=== PATIENT | male | born 1990 | race Two or more races ===

== ENCOUNTER 2020-03-08 14:01 | Inpatient (IN) | payer SELFPAY ==
[~2020-03-08] VITALS: Ht 170.2 cm; Wt 71.8 kg
[2020-03-08 14:42] LABS: BASO # 0.2 x10^3/uL (0.0-0.2); BASO % 1 % (0-3); EOS % 0 % (0-3); HEMATOCRIT 58.6 % (39.0-53.0); HEMOGLOBIN 20.2 g/dL (13.0-17.5); LYMPH % 8 % (24-48); MEAN CORPUSCULAR HEMOGLOBIN 32 pg (25-35); MEAN CORPUSCULAR HGB CONC 35 g/dL (31-37); MEAN CORPUSCULAR VOLUME 91 fL (79-100); MONO # 1.3 x10^3/uL (0.0-1.1); MONO % 5 % (0-9); NEUT # 22.4 x10^3/uL (1.8-7.7); NEUT % 87 % (31-73); PLATELET COUNT 365 x10^3/uL (140-400); RED BLOOD COUNT 6.41 x10^6/uL (4.30-5.70); RED CELL DISTRIBUTION WIDTH 13.8 % (11.5-14.5); WHITE BLOOD COUNT 25.9 x10^3/uL (4.0-11.0)
[2020-03-08] MEDS ORDERED: IV NORMAL SALINE 1000ML BAG 1,000 ML IV ONE ×3 (14:45→15:30)
[2020-03-08 14:50] LABS: CALCIUM 11.9 mg/dL (8.5-10.1); GFR 9.3; POTASSIUM 3.9 mmol/L (3.5-5.1)
--- NOTE | 2020-03-08 14:55 | PHYS DOC ---
Past Medical History Past Medical History: No Pertinent History Additional Past Medical Histor: per language line, "I don't know" Past Surgical History: No Surgical History Smoking Status: Never Smoker Alcohol Use: None General Adult EDM: Chief Complaint: MUSCLE SPASM/CRAMP HPI: HPI: Patient is a 29 year old male who presented to ER today by private vehicle complaining of nausea vomiting and muscle cramping since last night. Patient said he was working outside under the heat yesterday became severely dehydrated last night. He has been feeling weak, dizzy, having cramping in his muscle in his leg and had back area. Patient denies any cough or fever. Patient also complained of cramping in his abdomen area, he had more cramping in his legs and his back then in his belly. Review of Systems: Review of Systems: Constitutional: Denies fever or chills. [] Eyes: Denies change in visual acuity. [] HENT: Denies nasal congestion or sore throat. [] Respiratory: Denies cough or shortness of breath. [] Cardiovascular: Denies chest pain or edema. [] GI: Positive for abdominal cramping, nausea, vomiting, no diarrhea : Denies dysuria. [] Musculoskeletal: Positive for back pain, leg pain, cramping. Integument: Denies rash. [] Neurologic: Denies headache, focal weakness or sensory changes. [] Endocrine: Denies polyuria or polydipsia. [] Lymphatic: Denies swollen glands. [] Psychiatric: Denies depression or anxiety. [] Heart Score: Risk Factors: Risk Factors: DM, Current or recent (<one month) smoker, HTN, HLP, family history of CAD, obesity. Risk Scores: Score 0 - 3: 2.5% MACE over next 6 weeks - Discharge Home Score 4 - 6: 20.3% MACE over next 6 weeks - Admit for Clinical Observation Score 7 - 10: 72.7% MACE over next 6 weeks - Early Invasive Strategies Current Medications: Current Medications Medications (Trade) Dose Ordered Sig/Gilbert Start Time Stop Time Status Last Admin Dose Admin Sodium Chloride 1,000 ml @ 1,000 mls/hr 1X ONCE 03/08/20 14:45 03/08/20 15:44 03/08/20 14:45 1,000 MLS/HR Allergies: Allergies: Allergies Coded Allergies Type Severity Reaction Last Updated Verified No Known Drug Allergies 03/08/20 No Physical Exam: PE: Constitutional: Well developed, well nourished, no acute distress, non-toxic appearance. [] HENT: Normocephalic, atraumatic, bilateral external ears normal, oropharynx dry, no oral exudates, nose normal. [] Eyes: PERRLA, EOMI, conjunctiva normal, no discharge. [] Neck: Normal range of motion, no tenderness, supple, no stridor. [] Cardiovascular:Heart rate regular rhythm, no murmur [] Lungs & Thorax: Bilateral breath sounds clear to auscultation [] Abdomen: Bowel sounds normal, soft, no tenderness, no masses, no pulsatile mass es. [] Skin: Warm, dry, no erythema, no rash. [] Back: No tenderness, no CVA tenderness. [] Extremities: There is tenderness to palpation all along the muscle of the calf and the thigh areas Neurologic: Alert and oriented X 3, normal motor function, normal sensory function, no focal deficits noted. [] Psychologic: Affect normal, judgement normal, mood normal. [] Current Patient Data: Labs: Laboratory Tests Test 03/08/20 14:15 White Blood Count 25.9 x10^3/uL (4.0-11.0) H Red Blood Count 6.41 x10^6/uL (4.30-5.70) H Hemoglobin 20.2 g/dL (13.0-17.5) H Hematocrit 58.6 % (39.0-53.0) H Mean Corpuscular Volume 91 fL (79-100) Mean Corpuscular Hemoglobin 32 pg (25-35) Mean Corpuscular Hemoglobin Concent 35 g/dL (31-37) Red Cell Distribution Width 13.8 % (11.5-14.5) Platelet Count 365 x10^3/uL (140-400) Neutrophils (%) (Auto) 87 % (31-73) H Lymphocytes (%) (Auto) 8 % (24-48) L Monocytes (%) (Auto) 5 % (0-9) Eosinophils (%) (Auto) 0 % (0-3) Basophils (%) (Auto) 1 % (0-3) Neutrophils # (Auto) 22.4 x10^3/uL (1.8-7.7) H Lymphocytes # (Auto) 2.0 x10^3/uL (1.0-4.8) Monocytes # (Auto) 1.3 x10^3/uL (0.0-1.1) H Eosinophils # (Auto) 0.0 x10^3/uL (0.0-0.7) Basophils # (Auto) 0.2 x10^3/uL (0.0-0.2) Platelet Estimate Pending Laboratory Tests 03/08/20 14:15 Vital Signs: Vital Signs Date Time Temp Pulse Resp B/P (MAP) Pulse Ox O2 Delivery O2 Flow Rate FiO2 03/08/20 14:14 97.8 104 16 149/102 (118) 97 Room Air 97.8 EKG: EKG: [] Radiology/Procedures: Radiology/Procedures: [] Course & Med Decision Making: Course & Med Decision Making Pertinent Labs and Imaging studies reviewed. (See chart for details) Patient is a 29-year-old male who was found to be in acute renal failure, acute rhabdomyolysis from heat exhaustion. Patient was given IV fluid in the ER, he will be admitted to hospital for further evaluation and treatment. Dr. Lackey, hospitalist, was called, who agreed to admit the patient. Nephrology service was consulted, Dr. HANCOCK, was called, agreed with treatment plan, will see patient in am. Mojgan Disclaimer: Mojgan Disclaimer: This electronic medical record was generated, in whole or in part, using a voice recognition dictation system. Departure Departure Impression: Primary Impression: Acute renal failure Additional Impressions: Rhabdomyolysis Dehydration Disposition: ADMITTED INPATIENT [facility]Dr. Lackey at 1520 ) Condition: IMPROVED Justicifation of Admission Dx: Justifications for Admission: Justification of Admission Dx: Yes Acute Renal Failure: Serum Cr > 4mg/dL KALYN LUGO DO Mar 08, 2020 14:55
[2020-03-08 15:04] LABS: ALBUMIN 5.7 g/dL (3.4-5.0); ALBUMIN/GLOBULIN RATIO 1.1 (1.0-1.7); TOTAL BILIRUBIN 0.7 mg/dL (0.2-1.0)
[2020-03-08] MEDS ORDERED: MORPHINE SULFATE 2 MG/ML VIAL. IV ONE (15:30)
[2020-03-08 15:33] LABS: % BANDS 3 % (0-9); % LYMPHS 8 % (24-48); % MONOS 2 % (0-10); % SEGS 87 % (35-66)
[2020-03-08 15:34] LABS: PLT ESTIMATE ADEQUATE (ADEQUATE)
[2020-03-08] MEDS ORDERED: MORPHINE SULFATE 2 MG/ML VIAL. IV PRN (15:45)
[2020-03-08 16:07] LABS: BILIRUBIN,URINE SMALL (NEG); CLARITY,URINE CLOUDY; COLOR,URINE AMBER; NITRITE,URINE NEGATIVE (NEG); PROTEIN,URINE 100 mg/dL (NEG-TRACE); UROBILINOGEN,URINE 0.2 mg/dL (0.2 mg/dL)
[2020-03-08 16:15] LABS: BARBITURATES NEG (NEG); BENZODIAZEPINES NEG (NEG); CANNABINOIDS POS (NEG); COCAINE NEG (NEG); METHADONE NEG (NEG); OPIATES NEG (NEG); PHENCYCLIDINE NEG (NEG)
[2020-03-08 16:16] LABS: AMPHETAMINE/METHAMPHETAMINE POS (NEG)
[2020-03-08 16:28] LABS: BACTERIA,URINE FEW /HPF (0-FEW); HYALINE CASTS, URINE MODERATE /HPF; SQUAMOUS EPITHELIAL CELL,UR FEW /LPF
[2020-03-08 16:29] LABS: GRANULAR CASTS,URINE FEW /HPF
--- NOTE | 2020-03-08 17:30 | PDOC1 ---
History and Physical Date of Admission: Date of Admission DATE: 03/08/20 TIME: 17:29 Chief Complaint: Problems: (1) Dehydration (2) Acute renal failure (3) Rhabdomyolysis Chief Complain: Muscle spasms History of Present Illness: HPI: Patient is a 29 year old male who presented to ER today by private vehicle complaining of nausea vomiting and muscle cramping since last night. Patient said he was working outside under the heat yesterday became severely dehydrated last night. He has been feeling weak, dizzy, having cramping in his muscle in his leg and had back area. Patient denies any cough or fever. Patient also complained of cramping in his abdomen area, he had more cramping in his legs and his back then in his belly. Past Medical/Surgical History: PMH/PSH: Benign Allergies: Allergies: Coded Allergies: No Known Drug Allergies (Unverified , 03/08/20) Family History: Family History: Hypertension Social History: Social History: Does not drink smoke or take drugs Works outdoors Current Medications: Current Medications Current Medications Sodium Chloride 1,000 ml @ 1,000 mls/hr 1X ONCE IV Last administered on 03/08/20at 14:44; Start 03/08/20 at 14:45; Stop 03/08/20 at 15:44; Status DC Sodium Chloride 1,000 ml @ 1,000 mls/hr 1X ONCE IV Last administered on 03/08/20at 14:45; Start 03/08/20 at 14:45; Stop 03/08/20 at 15:44; Status DC Sodium Chloride 1,000 ml @ 1,000 mls/hr 1X ONCE IV Last administered on 03/08/20at 16:10; Start 03/08/20 at 15:30; Stop 03/08/20 at 16:29; Status DC Morphine Sulfate (Morphine Sulfate) 2 mg 1X ONCE IV Last administered on 0at 16:09; Start 03/08/20 at 15:30; Stop 03/08/20 at 15:31; Status DC Ondansetron HCl (Zofran) 4 mg PRN Q8HRS PRN IV NAUSEA/VOMITING; Start 03/08/20 at 15:45; Stop 03/09/20 at 15:44 Morphine Sulfate (Morphine Sulfate) 2 mg PRN Q2HR PRN IV PAIN; Start 03/08/20 at 15:45; Stop 03/09/20 at 15:44 Sodium Chloride 1,000 ml @ 125 mls/hr Q8H IV ; Start 03/08/20 at 15:38; Stop 03/09/20 at 15:37 ROS: Review of Systems Review of System REVIEW OF SYSTEMS: GENERAL: Denies weakness SKIN: No bruising, hair changes or rashes. EYES: No blurred, double or loss of vision. NOSE AND THROAT: No history of nosebleeds, hoarseness or sore throat. HEART: No history of palpitations, chest pain or shortness of breath on exertion. LUNGS: Denies cough, hemoptysis, wheezing or shortness of breath. GASTROINTESTINAL: Denies changes in appetite, nausea, vomiting, diarrhea or constipation. GENITOURINARY: No history of frequency, urgency, hesitancy or nocturia. NEUROLOGIC: Denies history of numbness, tingling, or tremor. PSYCHIATRIC: No history of panic, anxiety or depression. ENDOCRINE: No history of heat or cold intolerance, polyuria or polydipsia. EXTREMITIES: Denies joint pain, pain on walking or stiffness. Physical Exam: Vital Signs: Vital Signs Date Time Temp Pulse Resp B/P (MAP) Pulse Ox O2 Delivery O2 Flow Rate FiO2 03/08/20 14:14 97.8 104 16 149/102 (118) 97 Room Air 97.8 Physcial Exam: GEN: No apparent distress. Alert and oriented HEENT: Normal cephalic, atraumatic, external auditory canals are patent EYES: Extraocular muscles are intact, pupil are equally round and reactive to light and accommodation MUSCULOSKELETAL: Well developed , well nourished, good range of motion ENDOCRINE: No thyromegaly was palpated LYMPHATICS: No cervical chain or axillary nodes were noted HEMATOPOIETIC: No bruising NECK: Supple, no JVD, no thyromegaly was noted LUNGS: Clear to auscultation in all lung thomason without rhonchi or wheezing HEART: RRR, S!, S2 present. Peripheral pulses intact, no obvious murmurs noted ABDOMEN: Soft, nontender. Positive bowel sounds, no organomegaly, normal bowel sounds EXTREMITIES: Without clubbing, cyanosis, or edema. Pedal pulses intact. Neg ative Homans sign NEUROLOGIC: Normal speech and tone. A&O x 3, moves all extremities, no obvious focal deficits PSYCHIATRIC: Normal affect, normal mood. Stable SKIN: No ulcerations or rashes, good skin turgor, no jaundice VASCULAR: Good capillary refill, neurovascular bundle appears to be intact Labs: Labs: Laboratory Tests Test 03/08/20 14:05 03/08/20 14:15 Urine Collection Type Unknown Urine Color Mariely Urine Clarity Cloudy Urine pH 5.0 (<5.0-8.0) Urine Specific Hosford 1.020 (1.000-1.030) Urine Protein 100 mg/dL (NEG-TRACE) Urine Glucose (UA) Negative mg/dL (NEG) Urine Ketones (Stick) Trace mg/dL (NEG) Urine Blood Trace (NEG) Urine Nitrite Negative (NEG) Urine Bilirubin Small (NEG) Urine Urobilinogen Dipstick 0.2 mg/dL (0.2 mg/dL) Urine Leukocyte Esterase Trace (NEG) Urine RBC 3-5 /HPF (0-2) Urine WBC 1-4 /HPF (0-4) Urine Squamous Epithelial Cells Few /LPF Urine Bacteria Few /HPF (0-FEW) Urine Hyaline Casts Moderate /HPF Urine Granular Casts Few /HPF Urine Mucus Slight /LPF Urine Opiates Screen Neg (NEG) Urine Methadone Screen Neg (NEG) Urine Barbiturates Neg (NEG) Urine Phencyclidine Screen Neg (NEG) Urine Amphetamine/Methamphetamine Pos (NEG) Urine Benzodiazepines Screen Neg (NEG) Urine Cocaine Screen Neg (NEG) Urine Cannabinoids Screen Pos (NEG) Urine Ethyl Alcohol Neg (NEG) White Blood Count 25.9 x10^3/uL (4.0-11.0) Red Blood Count 6.41 x10^6/uL (4.30-5.70) Hemoglobin 20.2 g/dL (13.0-17.5) Hematocrit 58.6 % (39.0-53.0) Mean Corpuscular Volume 91 fL (79-100) Mean Corpuscular Hemoglobin 32 pg (25-35) Mean Corpuscular Hemoglobin Concent 35 g/dL (31-37) Red Cell Distribution Width 13.8 % (11.5-14.5) Platelet Count 365 x10^3/uL (140-400) Neutrophils (%) (Auto) 87 % (31-73) Lymphocytes (%) (Auto) 8 % (24-48) Monocytes (%) (Auto) 5 % (0-9) Eosinophils (%) (Auto) 0 % (0-3) Basophils (%) (Auto) 1 % (0-3) Neutrophils # (Auto) 22.4 x10^3/uL (1.8-7.7) Lymphocytes # (Auto) 2.0 x10^3/uL (1.0-4.8) Monocytes # (Auto) 1.3 x10^3/uL (0.0-1.1) Eosinophils # (Auto) 0.0 x10^3/uL (0.0-0.7) Basophils # (Auto) 0.2 x10^3/uL (0.0-0.2) Segmented Neutrophils % 87 % (35-66) Band Neutrophils % 3 % (0-9) Lymphocytes % 8 % (24-48) Monocytes % 2 % (0-10) Platelet Estimate Adequate (ADEQUATE) Sodium Level 137 mmol/L (136-145) Potassium Level 3.9 mmol/L (3.5-5.1) Chloride Level 85 mmol/L (98-107) Carbon Dioxide Level 28 mmol/L (21-32) Anion Gap 24 (6-14) Blood Urea Nitrogen 44 mg/dL (8-26) Creatinine 7.0 mg/dL (0.7-1.3) Estimated GFR (Cockcroft-Gault) 9.3 BUN/Creatinine Ratio 6 (6-20) Glucose Level 214 mg/dL (70-99) Calcium Level 11.9 mg/dL (8.5-10.1) Magnesium Level 2.9 mg/dL (1.8-2.4) Total Bilirubin 0.7 mg/dL (0.2-1.0) Aspartate Amino Transf (AST/SGOT) 50 U/L (15-37) Alanine Aminotransferase (ALT/SGPT) 40 U/L (16-63) Alkaline Phosphatase 118 U/L (46-116) Creatine Kinase 3140 U/L (39-308) Total Protein 11.0 g/dL (6.4-8.2) Albumin 5.7 g/dL (3.4-5.0) Albumin/Globulin Ratio 1.1 (1.0-1.7) Laboratory Tests Test 03/08/20 14:05 03/08/20 14:15 Urine Collection Type Unknown Urine Color Mariely Urine Clarity Cloudy Urine pH 5.0 (<5.0-8.0) Urine Specific Hos[place] 1.020 (1.000-1.030) Urine Protein 100 mg/dL (NEG-TRACE) Urine Glucose (UA) Negative mg/dL (NEG) Urine Ketones (Stick) Trace mg/dL (NEG) Urine Blood Trace (NEG) Urine Nitrite Negative (NEG) Urine Bilirubin Small (NEG) Urine Urobilinogen Dipstick 0.2 mg/dL (0.2 mg/dL) Urine Leukocyte Esterase Trace (NEG) Urine RBC 3-5 /HPF (0-2) Urine WBC 1-4 /HPF (0-4) Urine Squamous Epithelial Cells Few /LPF Urine Bacteria Few /HPF (0-FEW) Urine Hyaline Casts Moderate /HPF Urine Granular Casts Few /HPF Urine Mucus Slight /LPF Urine Opiates Screen Neg (NEG) Urine Methadone Screen Neg (NEG) Urine Barbiturates Neg (NEG) Urine Phencyclidine Screen Neg (NEG) Urine Amphetamine/Methamphetamine Pos (NEG) Urine Benzodiazepines Screen Neg (NEG) Urine Cocaine Screen Neg (NEG) Urine Cannabinoids Screen Pos (NEG) Urine Ethyl Alcohol Neg (NEG) White Blood Count 25.9 x10^3/uL (4.0-11.0) Red Blood Count 6.41 x10^6/uL (4.30-5.70) Hemoglobin 20.2 g/dL (13.0-17.5) Hematocrit 58.6 % (39.0-53.0) Mean Corpuscular Volume 91 fL (79-100) Mean Corpuscular Hemoglobin 32 pg (25-35) Mean Corpuscular Hemoglobin Concent 35 g/dL (31-37) Red Cell Distribution Width 13.8 % (11.5-14.5) Platelet Count 365 x10^3/uL (140-400) Neutrophils (%) (Auto) 87 % (31-73) Lymphocytes (%) (Auto) 8 % (24-48) Monocytes (%) (Auto) 5 % (0-9) Eosinophils (%) (Auto) 0 % (0-3) Basophils (%) (Auto) 1 % (0-3) Neutrophils # (Auto) 22.4 x10^3/uL (1.8-7.7) Lymphocytes # (Auto) 2.0 x10^3/uL (1.0-4.8) Monocytes # (Auto) 1.3 x10^3/uL (0.0-1.1) Eosinophils # (Auto) 0.0 x10^3/uL (0.0-0.7) Basophils # (Auto) 0.2 x10^3/uL (0.0-0.2) Segmented Neutrophils % 87 % (35-66) Band Neutrophils % 3 % (0-9) Lymphocytes % 8 % (24-48) Monocytes % 2 % (0-10) Platelet Estimate Adequate (ADEQUATE) Sodium Level 137 mmol/L (136-145) Potassium Level 3.9 mmol/L (3.5-5.1) Chloride Level 85 mmol/L (98-107) Carbon Dioxide Level 28 mmol/L (21-32) Anion Gap 24 (6-14) Blood Urea Nitrogen 44 mg/dL (8-26) Creatinine 7.0 mg/dL (0.7-1.3) Estimated GFR (Cockcroft-Gault) 9.3 BUN/Creatinine Ratio 6 (6-20) Glucose Level 214 mg/dL (70-99) Calcium Level 11.9 mg/dL (8.5-10.1) Magnesium Level 2.9 mg/dL (1.8-2.4) Total Bilirubin 0.7 mg/dL (0.2-1.0) Aspartate Amino Transf (AST/SGOT) 50 U/L (15-37) Alanine Aminotransferase (ALT/SGPT) 40 U/L (16-63) Alkaline Phosphatase 118 U/L (46-116) Creatine Kinase 3140 U/L (39-308) Total Protein 11.0 g/dL (6.4-8.2) Albumin 5.7 g/dL (3.4-5.0) Albumin/Globulin Ratio 1.1 (1.0-1.7) Assessment/Plan Assessment/Plan Severe acute renal failure with dehydration rhabdomyolysis Plan IV fluids Trend labs Consult nephrology Home meds DVT prophylaxis Full code Justicifation of Admission Dx: Justifications for Admission: Justification of Admission Dx: Yes Acute Renal Failure: Serum Cr > 4mg/dL ANTHONY BRADSHAW III DO Mar 08, 2020 17:30
[2020-03-08] MEDS: IV NORMAL SALINE 1000ML BAG 1,000 ML IV SCH (17:49)
[2020-03-08 18:19] VITALS: BP 147/93
[2020-03-08 23:05] VITALS: BP 129/67
[2020-03-09] MEDS: IV NORMAL SALINE 1000ML BAG 1,000 ML IV SCH ×4 (01:00→22:43)
[2020-03-09 03:25] VITALS: BP 121/77
[2020-03-09] MEDS: ONDANSETRON PF 4 MG/2 ML VIAL. IV PRN ×2 (03:53→13:11)
[2020-03-09 05:09] LABS: BASO % 0 % (0-3); EOS % 0 % (0-3); HEMATOCRIT 45.9 % (39.0-53.0); HEMOGLOBIN 15.7 g/dL (13.0-17.5); LYMPH # 2.1 x10^3/uL (1.0-4.8); LYMPH % 13 % (24-48); MEAN CORPUSCULAR HEMOGLOBIN 31 pg (25-35); MEAN CORPUSCULAR HGB CONC 34 g/dL (31-37); MEAN CORPUSCULAR VOLUME 92 fL (79-100); MONO # 1.4 x10^3/uL (0.0-1.1); MONO % 9 % (0-9); NEUT # 12.6 x10^3/uL (1.8-7.7); NEUT % 78 % (31-73); PLATELET COUNT 237 x10^3/uL (140-400); RED CELL DISTRIBUTION WIDTH 13.4 % (11.5-14.5); WHITE BLOOD COUNT 16.1 x10^3/uL (4.0-11.0)
--- NOTE | 2020-03-09 05:19 | EKG ---
[facility] [address] [place] [address] Test Date: 2020-03-09 Test Time: 04:48:43 Pat Name: SARAHI COOPER Department: Room: 208 1 Gender: M Mouse [employer]eder: : 1990 Requested By: ANTHONY BRADSHAW Order Number: [id number] Reading MD: Luis Parker MD Measurements Intervals Shepherd Rate: 69 P: 36 NE: 144 QRS: 41 QRSD: 100 T: 42 QT: 384 QTc: 413 Interpretive Statements SINUS RHYTHM Electronically Signed On 04-21-2020 13:48:11 CDT by Luis Parker MD
[2020-03-09 05:32] LABS: ALBUMIN 3.7 g/dL (3.4-5.0); CALCIUM 8.7 mg/dL (8.5-10.1); CREATININE 2.4 mg/dL (0.7-1.3); GFR 31.9; TOTAL BILIRUBIN 0.8 mg/dL (0.2-1.0); TOTAL PROTEIN 7.3 g/dL (6.4-8.2)
[2020-03-09 07:00] VITALS: BP 132/67
--- NOTE | 2020-03-09 08:25 | PDOC ---
PROGRESS NOTES Chief Complaint Chief Complaint A/P: Acute renal failure - likely vasomotor nephropathy with element of ATN from amphetamine use Leukocytosis - no clear infectious etiology, likely 2/2 rhabo Rhabdomyolysis - IVF resuscitation. Monitor LFTs, renal function Hypercalcemia - likely from dehydration, improved. will monitor Amphetamine positive UDS History of Present Illness History of Present Illness Mr Sam is a 29 yo M who presented to ER today by private vehicle complaining of nausea vomiting and muscle cramping since 03/07/2020 in the [facility]. Patient said he was working outside in the heat, became severely dehydrated. He has been feeling weak, dizzy, having cramping in his muscle in his leg and had back area. Patient denies any cough or fever. Patient also complained of cramping in his abdomen area, he had more cramping in his legs and his back then in his belly. Labs significant for WBC 25.9, [place] [address] creatinine 7, calcium 11.9, UDS positive for methamphetamines and cannabinoids. Admitted for further care WBC 16.1 today, BUN 33 creatinine 2.4. He has no complaints today. CPK up to 3603, AST up to 68. Vitals Vitals Vital Signs Date Time Temp Pulse Resp B/P (MAP) Pulse Ox O2 Delivery O2 Flow Rate FiO2 03/09/20 03:25 98.4 71 18 121/77 (92) 93 Room Air 98.4 Physical Exam General: Alert Labs LABS Laboratory Tests Test 03/08/20 14:05 03/08/20 14:15 03/09/20 04:18 Urine Collection Type Unknown Urine Color Mariely Urine Clarity Cloudy Urine pH 5.0 (<5.0-8.0) Urine Specific Allison 1.020 (1.000-1.030) Urine Protein 100 mg/dL (NEG-TRACE) Urine Glucose (UA) Negative mg/dL (NEG) Urine Ketones (Stick) Trace mg/dL (NEG) Urine Blood Trace (NEG) Urine Nitrite Negative (NEG) Urine Bilirubin Small (NEG) Urine Urobilinogen Dipstick 0.2 mg/dL (0.2 mg/dL) Urine Leukocyte Esterase Trace (NEG) Urine RBC 3-5 /HPF (0-2) Urine WBC 1-4 /HPF (0-4) Urine Squamous Epithelial Cells Few /LPF Urine Bacteria Few /HPF (0-FEW) Urine Hyaline Casts Moderate /HPF Urine Granular Casts Few /HPF Urine Mucus Slight /LPF Urine Opiates Screen Neg (NEG) Urine Methadone Screen Neg (NEG) Urine Barbiturates Neg (NEG) Urine Phencyclidine Screen Neg (NEG) Urine Amphetamine/Methamphetamine Pos (NEG) Urine Benzodiazepines Screen Neg (NEG) Urine Cocaine Screen Neg (NEG) Urine Cannabinoids Screen Pos (NEG) Urine Ethyl Alcohol Neg (NEG) White Blood Count 25.9 x10^3/uL (4.0-11.0) 16.1 x10^3/uL (4.0-11.0) Red Blood Count 6.41 x10^6/uL (4.30-5.70) 5.00 x10^6/uL (4.30-5.70) Hemoglobin 20.2 g/dL (13.0-17.5) 15.7 g/dL (13.0-17.5) Hematocrit 58.6 % (39.0-53.0) 45.9 % (39.0-53.0) Mean Corpuscular Volume 91 fL (79-100) 92 fL (79-100) Mean Corpuscular Hemoglobin 32 pg (25-35) 31 pg (25-35) Mean Corpuscular Hemoglobin Concent 35 g/dL (31-37) 34 g/dL (31-37) Red Cell Distribution Width 13.8 % (11.5-14.5) 13.4 % (11.5-14.5) Platelet Count 365 x10^3/uL (140-400) 237 x10^3/uL (140-400) Neutrophils (%) (Auto) 87 % (31-73) 78 % (31-73) Lymphocytes (%) (Auto) 8 % (24-48) 13 % (24-48) Monocytes (%) (Auto) 5 % (0-9) 9 % (0-9) Eosinophils (%) (Auto) 0 % (0-3) 0 % (0-3) Basophils (%) (Auto) 1 % (0-3) 0 % (0-3) Neutrophils # (Auto) 22.4 x10^3/uL (1.8-7.7) 12.6 x10^3/uL (1.8-7.7) Lymphocytes # (Auto) 2.0 x10^3/uL (1.0-4.8) 2.1 x10^3/uL (1.0-4.8) Monocytes # (Auto) 1.3 x10^3/uL (0.0-1.1) 1.4 x10^3/uL (0.0-1.1) Eosinophils # (Auto) 0.0 x10^3/uL (0.0-0.7) 0.0 x10^3/uL (0.0-0.7) Basophils # (Auto) 0.2 x10^3/uL (0.0-0.2) 0.0 x10^3/uL (0.0-0.2) Segmented Neutrophils % 87 % (35-66) Band Neutrophils % 3 % (0-9) Lymphocytes % 8 % (24-48) Monocytes % 2 % (0-10) Platelet Estimate Adequate (ADEQUATE) Sodium Level 137 mmol/L (136-145) 138 mmol/L (136-145) Potassium Level 3.9 mmol/L (3.5-5.1) 4.0 mmol/L (3.5-5.1) Chloride Level 85 mmol/L (98-107) 99 mmol/L (98-107) Carbon Dioxide Level 28 mmol/L (21-32) 31 mmol/L (21-32) Anion Gap 24 (6-14) 8 (6-14) Blood Urea Nitrogen 44 mg/dL (8-26) 33 mg/dL (8-26) Creatinine 7.0 mg/dL (0.7-1.3) 2.4 mg/dL (0.7-1.3) Estimated GFR (Cockcroft-Gault) 9.3 31.9 BUN/Creatinine Ratio 6 (6-20) 14 (6-20) Glucose Level 214 mg/dL (70-99) 114 mg/dL (70-99) Calcium Level 11.9 mg/dL (8.5-10.1) 8.7 mg/dL (8.5-10.1) Magnesium Level 2.9 mg/dL (1.8-2.4) Total Bilirubin 0.7 mg/dL (0.2-1.0) 0.8 mg/dL (0.2-1.0) Aspartate Amino Transf (AST/SGOT) 50 U/L (15-37) 68 U/L (15-37) Alanine Aminotransferase (ALT/SGPT) 40 U/L (16-63) 37 U/L (16-63) Alkaline Phosphatase 118 U/L (46-116) 80 U/L (46-116) Creatine Kinase 3140 U/L (39-308) Total Protein 11.0 g/dL (6.4-8.2) 7.3 g/dL (6.4-8.2) Albumin 5.7 g/dL (3.4-5.0) 3.7 g/dL (3.4-5.0) Albumin/Globulin Ratio 1.1 (1.0-1.7) 1.0 (1.0-1.7) Troponin I Quantitative 0.058 ng/mL (0.000-0.055) Assessment and Plan Assessmemt and Plan Problems Medical Problems: (1) Acute renal failure Status: Acute (2) Dehydration Status: Acute (3) Rhabdomyolysis Status: Acute Comment Review of Relevant I have reviewed the following items gilberto (where applicable) has been applied. Labs Laboratory Tests Test 03/08/20 14:05 03/08/20 14:15 03/09/20 04:18 Urine Collection Type Unknown Urine Color Mariely Urine Clarity Cloudy Urine pH 5.0 (<5.0-8.0) Urine Specific Allison 1.020 (1.000-1.030) Urine Protein 100 mg/dL (NEG-TRACE) Urine Glucose (UA) Negative mg/dL (NEG) Urine Ketones (Stick) Trace mg/dL (NEG) Urine Blood Trace (NEG) Urine Nitrite Negative (NEG) Urine Bilirubin Small (NEG) Urine Urobilinogen Dipstick 0.2 mg/dL (0.2 mg/dL) Urine Leukocyte Esterase Trace (NEG) Urine RBC 3-5 /HPF (0-2) Urine WBC 1-4 /HPF (0-4) Urine Squamous Epithelial Cells Few /LPF Urine Bacteria Few /HPF (0-FEW) Urine Hyaline Casts Moderate /HPF Urine Granular Casts Few /HPF Urine Mucus Slight /LPF Urine Opiates Screen Neg (NEG) Urine Methadone Screen Neg (NEG) Urine Barbiturates Neg (NEG) Urine Phencyclidine Screen Neg (NEG) Urine Amphetamine/Methamphetamine Pos (NEG) Urine Benzodiazepines Screen Neg (NEG) Urine Cocaine Screen Neg (NEG) Urine Cannabinoids Screen Pos (NEG) Urine Ethyl Alcohol Neg (NEG) White Blood Count 25.9 x10^3/uL (4.0-11.0) 16.1 x10^3/uL (4.0-11.0) Red Blood Count 6.41 x10^6/uL (4.30-5.70) 5.00 x10^6/uL (4.30-5.70) Hemoglobin 20.2 g/dL (13.0-17.5) 15.7 g/dL (13.0-17.5) Hematocrit 58.6 % (39.0-53.0) 45.9 % (39.0-53.0) Mean Corpuscular Volume 91 fL (79-100) 92 fL (79-100) Mean Corpuscular Hemoglobin 32 pg (25-35) 31 pg (25-35) Mean Corpuscular Hemoglobin Concent 35 g/dL (31-37) 34 g/dL (31-37) Red Cell Distribution Width 13.8 % (11.5-14.5) 13.4 % (11.5-14.5) Platelet Count 365 x10^3/uL (140-400) 237 x10^3/uL (140-400) Neutrophils (%) (Auto) 87 % (31-73) 78 % (31-73) Lymphocytes (%) (Auto) 8 % (24-48) 13 % (24-48) Monocytes (%) (Auto) 5 % (0-9) 9 % (0-9) Eosinophils (%) (Auto) 0 % (0-3) 0 % (0-3) Basophils (%) (Auto) 1 % (0-3) 0 % (0-3) Neutrophils # (Auto) 22.4 x10^3/uL (1.8-7.7) 12.6 x10^3/uL (1.8-7.7) Lymphocytes # (Auto) 2.0 x10^3/uL (1.0-4.8) 2.1 x10^3/uL (1.0-4.8) Monocytes # (Auto) 1.3 x10^3/uL (0.0-1.1) 1.4 x10^3/uL (0.0-1.1) Eosinophils # (Auto) 0.0 x10^3/uL (0.0-0.7) 0.0 x10^3/uL (0.0-0.7) Basophils # (Auto) 0.2 x10^3/uL (0.0-0.2) 0.0 x10^3/uL (0.0-0.2) Segmented Neutrophils % 87 % (35-66) Band Neutrophils % 3 % (0-9) Lymphocytes % 8 % (24-48) Monocytes % 2 % (0-10) Platelet Estimate Adequate (ADEQUATE) Sodium Level 137 mmol/L (136-145) 138 mmol/L (136-145) Potassium Level 3.9 mmol/L (3.5-5.1) 4.0 mmol/L (3.5-5.1) Chloride Level 85 mmol/L (98-107) 99 mmol/L (98-107) Carbon Dioxide Level 28 mmol/L (21-32) 31 mmol/L (21-32) Anion Gap 24 (6-14) 8 (6-14) Blood Urea Nitrogen 44 mg/dL (8-26) 33 mg/dL (8-26) Creatinine 7.0 mg/dL (0.7-1.3) 2.4 mg/dL (0.7-1.3) Estimated GFR (Cockcroft-Gault) 9.3 31.9 BUN/Creatinine Ratio 6 (6-20) 14 (6-20) Glucose Level 214 mg/dL (70-99) 114 mg/dL (70-99) Calcium Level 11.9 mg/dL (8.5-10.1) 8.7 mg/dL (8.5-10.1) Magnesium Level 2.9 mg/dL (1.8-2.4) Total Bilirubin 0.7 mg/dL (0.2-1.0) 0.8 mg/dL (0.2-1.0) Aspartate Amino Transf (AST/SGOT) 50 U/L (15-37) 68 U/L (15-37) Alanine Aminotransferase (ALT/SGPT) 40 U/L (16-63) 37 U/L (16-63) Alkaline Phosphatase 118 U/L (46-116) 80 U/L (46-116) Creatine Kinase 3140 U/L (39-308) Total Protein 11.0 g/dL (6.4-8.2) 7.3 g/dL (6.4-8.2) Albumin 5.7 g/dL (3.4-5.0) 3.7 g/dL (3.4-5.0) Albumin/Globulin Ratio 1.1 (1.0-1.7) 1.0 (1.0-1.7) Troponin I Quantitative 0.058 ng/mL (0.000-0.055) Laboratory Tests Test 03/08/20 14:05 03/08/20 14:15 03/09/20 04:18 Urine Collection Type Unknown Urine Color Mariely Urine Clarity Cloudy Urine pH 5.0 (<5.0-8.0) Urine Specific Allison 1.020 (1.000-1.030) Urine Protein 100 mg/dL (NEG-TRACE) Urine Glucose (UA) Negative mg/dL (NEG) Urine Ketones (Stick) Trace mg/dL (NEG) Urine Blood Trace (NEG) Urine Nitrite Negative (NEG) Urine Bilirubin Small (NEG) Urine Urobilinogen Dipstick 0.2 mg/dL (0.2 mg/dL) Urine Leukocyte Esterase Trace (NEG) Urine RBC 3-5 /HPF (0-2) Urine WBC 1-4 /HPF (0-4) Urine Squamous Epithelial Cells Few /LPF Urine Bacteria Few /HPF (0-FEW) Urine Hyaline Casts Moderate /HPF Urine Granular Casts Few /HPF Urine Mucus Slight /LPF Urine Opiates Screen Neg (NEG) Urine Methadone Screen Neg (NEG) Urine Barbiturates Neg (NEG) Urine Phencyclidine Screen Neg (NEG) Urine Amphetamine/Methamphetamine Pos (NEG) Urine Benzodiazepines Screen Neg (NEG) Urine Cocaine Screen Neg (NEG) Urine Cannabinoids Screen Pos (NEG) Urine Ethyl Alcohol Neg (NEG) White Blood Count 25.9 x10^3/uL (4.0-11.0) 16.1 x10^3/uL (4.0-11.0) Red Blood Count 6.41 x10^6/uL (4.30-5.70) 5.00 x10^6/uL (4.30-5.70) Hemoglobin 20.2 g/dL (13.0-17.5) 15.7 g/dL (13.0-17.5) Hematocrit 58.6 % (39.0-53.0) 45.9 % (39.0-53.0) Mean Corpuscular Volume 91 fL (79-100) 92 fL (79-100) Mean Corpuscular Hemoglobin 32 pg (25-35) 31 pg (25-35) Mean Corpuscular Hemoglobin Concent 35 g/dL (31-37) 34 g/dL (31-37) Red Cell Distribution Width 13.8 % (11.5-14.5) 13.4 % (11.5-14.5) Platelet Count 365 x10^3/uL (140-400) 237 x10^3/uL (140-400) Neutrophils (%) (Auto) 87 % (31-73) 78 % (31-73) Lymphocytes (%) (Auto) 8 % (24-48) 13 % (24-48) Monocytes (%) (Auto) 5 % (0-9) 9 % (0-9) Eosinophils (%) (Auto) 0 % (0-3) 0 % (0-3) Basophils (%) (Auto) 1 % (0-3) 0 % (0-3) Neutrophils # (Auto) 22.4 x10^3/uL (1.8-7.7) 12.6 x10^3/uL (1.8-7.7) Lymphocytes # (Auto) 2.0 x10^3/uL (1.0-4.8) 2.1 x10^3/uL (1.0-4.8) Monocytes # (Auto) 1.3 x10^3/uL (0.0-1.1) 1.4 x10^3/uL (0.0-1.1) Eosinophils # (Auto) 0.0 x10^3/uL (0.0-0.7) 0.0 x10^3/uL (0.0-0.7) Basophils # (Auto) 0.2 x10^3/uL (0.0-0.2) 0.0 x10^3/uL (0.0-0.2) Segmented Neutrophils % 87 % (35-66) Band Neutrophils % 3 % (0-9) Lymphocytes % 8 % (24-48) Monocytes % 2 % (0-10) Platelet Estimate Adequate (ADEQUATE) Sodium Level 137 mmol/L (136-145) 138 mmol/L (136-145) Potassium Level 3.9 mmol/L (3.5-5.1) 4.0 mmol/L (3.5-5.1) Chloride Level 85 mmol/L (98-107) 99 mmol/L (98-107) Carbon Dioxide Level 28 mmol/L (21-32) 31 mmol/L (21-32) Anion Gap 24 (6-14) 8 (6-14) Blood Urea Nitrogen 44 mg/dL (8-26) 33 mg/dL (8-26) Creatinine 7.0 mg/dL (0.7-1.3) 2.4 mg/dL (0.7-1.3) Estimated GFR (Cockcroft-Gault) 9.3 31.9 BUN/Creatinine Ratio 6 (6-20) 14 (6-20) Glucose Level 214 mg/dL (70-99) 114 mg/dL (70-99) Calcium Level 11.9 mg/dL (8.5-10.1) 8.7 mg/dL (8.5-10.1) Magnesium Level 2.9 mg/dL (1.8-2.4) Total Bilirubin 0.7 mg/dL (0.2-1.0) 0.8 mg/dL (0.2-1.0) Aspartate Amino Transf (AST/SGOT) 50 U/L (15-37) 68 U/L (15-37) Alanine Aminotransferase (ALT/SGPT) 40 U/L (16-63) 37 U/L (16-63) Alkaline Phosphatase 118 U/L (46-116) 80 U/L (46-116) Creatine Kinase 3140 U/L (39-308) Total Protein 11.0 g/dL (6.4-8.2) 7.3 g/dL (6.4-8.2) Albumin 5.7 g/dL (3.4-5.0) 3.7 g/dL (3.4-5.0) Albumin/Globulin Ratio 1.1 (1.0-1.7) 1.0 (1.0-1.7) Troponin I Quantitative 0.058 ng/mL (0.000-0.055) Medications Current Medications Sodium Chloride 1,000 ml @ 1,000 mls/hr 1X ONCE IV Last administered on 03/08/20at 14:44; Start 03/08/20 at 14:45; Stop 03/08/20 at 15:44; Status DC Sodium Chloride 1,000 ml @ 1,000 mls/hr 1X ONCE IV Last administered on 03/08/20at 14:45; Start 03/08/20 at 14:45; Stop 03/08/20 at 15:44; Status DC Sodium Chloride 1,000 ml @ 1,000 mls/hr 1X ONCE IV Last administered on 03/08at 16:10; Start 03/08/20 at 15:30; Stop 03/08/20 at 16:29; Status DC Morphine Sulfate (Morphine Sulfate) 2 mg 1X ONCE IV Last administered on 03/08/20at 16:09; Start 03/08/20 at 15:30; Stop 03/08/20 at 15:31; Status DC Ondansetron HCl (Zofran) 4 mg PRN Q8HRS PRN IV NAUSEA/VOMITING Last administered on 03/09/20at 03:53; Start 03/08/20 at 15:45; Stop 03/09/20 at 15:44 Morphine Sulfate (Morphine Sulfate) 2 mg PRN Q2HR PRN IV PAIN Last administered on 03/08/20at 17:49; Start 03/08/20 at 15:45; Stop 03/09/20 at 15:44 Sodium Chloride 1,000 ml @ 125 mls/hr Q8H IV Last administered on 03/09/20at 01:00; Start 03/08/20 at 15:38; Stop 03/09/20 at 15:37 Vitals/I & O Vital Sign - Last 24 Hours 03/08/20 03/08/20 03/08/20 03/08/20 14:14 14:40 15:40 16:40 Temp 97.8 97.8 Pulse 104 106 80 80 Resp 16 B/P (MAP) 149/102 (118) 148/90 (109) 143/78 (99) 160/87 (111) Pulse Ox 97 96 99 98 O2 Delivery Room Air Room Air Room Air Room Air 03/08/20 03/08/20 03/08/20 03/08/20 17:40 18:19 20:00 23:05 Temp 97.5 99.0 97.5 99.0 Pulse 78 79 87 Resp 18 18 B/P (MAP) 141/80 (100) 147/93 (111) 129/67 (87) Pulse Ox 98 94 97 O2 Delivery Room Air Room Air Room Air Room Air 03/09/20 03:25 Temp 98.4 98.4 Pulse 71 Resp 18 B/P (MAP) 121/77 (92) Pulse Ox 93 O2 Delivery Room Air Intake and Output 03/08/20 03/08/20 03/09/20 15:00 23:00 07:00 Intake Total 3000 ml 1800 ml Output Total 200 ml Balance 3000 ml 1600 ml Justicifation of Admission Dx: Justifications for Admission: Justification of Admission Dx: Yes Acute Renal Failure: Serum Cr > 4mg/dL SHANTEL RIZO MD Mar 09, 2020 08:25
--- NOTE | 2020-03-09 09:09 | PDOC2 ---
CONSULT Date of Consult Date of Consult DATE: 03/09/20 TIME: 09:08 Reason for Consult Reason for Consult: LILIA Source Source: Chart review History of Present Illness Reason for Visit: From chart review- pt doesnt speak belarusian Patient is a 29 year old male who presented to ER on 03/08 complaining of nausea vomiting and muscle cramping . He reported that he was working outside under the heat became severely dehydrated . He has been feeling weak, dizzy, having cramping in his muscle in his leg and had back area. Patient denies any cough or fever. Patient also complained of cramping in his abdomen area, he had more cramping in his legs and his back then in his belly. Denies any urinary complaints. Discussed with ER physician yesterday- given IVF, Ordered UDS , close Monitoring Past Medical History Past Medical History No significant PMHx Past Surgical History Past Surgical History None Family History Family History: Hypertension Social History Social History Denies Drug use- UDS positive for Amphetamine and cannabinoids Denies ETOH Current Problem List Problem List Problems Medical Problems: (1) Acute renal failure Status: Acute (2) Dehydration Status: Acute (3) Rhabdomyolysis Status: Acute Current Medications Current Medications Current Medications Sodium Chloride 1,000 ml @ 1,000 mls/hr 1X ONCE IV Last administered on 03/08/20at 14:44; Start 03/08/20 at 14:45; Stop 03/08/20 at 15:44; Status DC Sodium Chloride 1,000 ml @ 1,000 mls/hr 1X ONCE IV Last administered on 03/08/20at 14:45; Start 03/08/20 at 14:45; Stop 03/08/20 at 15:44; Status DC Sodium Chloride 1,000 ml @ 1,000 mls/hr 1X ONCE IV Last administered on 03/08/20at 16:10; Start 03/08/20 at 15:30; Stop 03/08/20 at 16:29; Status DC Morphine Sulfate (Morphine Sulfate) 2 mg 1X ONCE IV Last administered on 03/08/20at 16:09; Start 03/08/20 at 15:30; Stop 03/08/20 at 15:31; Status DC Ondansetron HCl (Zofran) 4 mg PRN Q8HRS PRN IV NAUSEA/VOMITING Last administered on 03/09/20at 03:53; Start 03/08/20 at 15:45; Stop 03/09/20 at 15:44 Morphine Sulfate (Morphine Sulfate) 2 mg PRN Q2HR PRN IV PAIN Last administered on 03/08/20at 17:49; Start 03/08/20 at 15:45; Stop 03/09/20 at 15:44 Sodium Chloride 1,000 ml @ 125 mls/hr Q8H IV Last administered on 03/09/20at 01:00; Start 03/08/20 at 15:38; Stop 03/09/20 at 15:37 Allergies Allergies: Coded Allergies: No Known Drug Allergies (Unverified , 03/08/20) ROS Review of System Per HPI Physical Exam Physical Exam GEN: NAD HEEN: OM moist NECK: supple CVS: S1S2, RESP: CTA, No Acc. Muscle Use GI: BS + ve, Non Tender, Non Distended : No CVA tenderness, No Suprapubic Tenderness, No Mantilla NEURO- Grossly normal SKIN No rash EXT No LE edema Vital Signs Vital Signs Date Time Temp Pulse Resp B/P (MAP) Pulse Ox O2 Delivery O2 Flow Rate FiO2 03/09/20 07:00 98.2 70 18 132/67 (88) 97 Room Air 98.2 Assessment & Plan Acute renal failure - vasomotor /Dehydration /Mild Rhabdo Improving with IVF, Cr 7.0-->2.4 , Good UOP (per RN ) Supportive care, avoid nephrotoxins, strict i/o Amphetamine positive - UDS ordered, though pt denied any use of illegal drugs Also Positive for Cannabinoids Rhabdo- Mild , 2/2 Heat exhausation/Meth Hypercalcemia - likely from dehydration, Resolved Leukocytosis- Likely hemoconc Labs Labs Laboratory Tests Test 03/08/20 14:05 03/08/20 14:15 03/09/20 04:18 Urine Collection Type Unknown Urine Color Mariely Urine Clarity Cloudy Urine pH 5.0 (<5.0-8.0) Urine Specific Lawrence 1.020 (1.000-1.030) Urine Protein 100 mg/dL (NEG-TRACE) Urine Glucose (UA) Negative mg/dL (NEG) Urine Ketones (Stick) Trace mg/dL (NEG) Urine Blood Trace (NEG) Urine Nitrite Negative (NEG) Urine Bilirubin Small (NEG) Urine Urobilinogen Dipstick 0.2 mg/dL (0.2 mg/dL) Urine Leukocyte Esterase Trace (NEG) Urine RBC 3-5 /HPF (0-2) Urine WBC 1-4 /HPF (0-4) Urine Squamous Epithelial Cells Few /LPF Urine Bacteria Few /HPF (0-FEW) Urine Hyaline Casts Moderate /HPF Urine Granular Casts Few /HPF Urine Mucus Slight /LPF Urine Opiates Screen Neg (NEG) Urine Methadone Screen Neg (NEG) Urine Barbiturates Neg (NEG) Urine Phencyclidine Screen Neg (NEG) Urine Amphetamine/Methamphetamine Pos (NEG) Urine Benzodiazepines Screen Neg (NEG) Urine Cocaine Screen Neg (NEG) Urine Cannabinoids Screen Pos (NEG) Urine Ethyl Alcohol Neg (NEG) White Blood Count 25.9 x10^3/uL (4.0-11.0) 16.1 x10^3/uL (4.0-11.0) Red Blood Count 6.41 x10^6/uL (4.30-5.70) 5.00 x10^6/uL (4.30-5.70) Hemoglobin 20.2 g/dL (13.0-17.5) 15.7 g/dL (13.0-17.5) Hematocrit 58.6 % (39.0-53.0) 45.9 % (39.0-53.0) Mean Corpuscular Volume 91 fL (79-100) 92 fL (79-100) Mean Corpuscular Hemoglobin 32 pg (25-35) 31 pg (25-35) Mean Corpuscular Hemoglobin Concent 35 g/dL (31-37) 34 g/dL (31-37) Red Cell Distribution Width 13.8 % (11.5-14.5) 13.4 % (11.5-14.5) Platelet Count 365 x10^3/uL (140-400) 237 x10^3/uL (140-400) Neutrophils (%) (Auto) 87 % (31-73) 78 % (31-73) Lymphocytes (%) (Auto) 8 % (24-48) 13 % (24-48) Monocytes (%) (Auto) 5 % (0-9) 9 % (0-9) Eosinophils (%) (Auto) 0 % (0-3) 0 % (0-3) Basophils (%) (Auto) 1 % (0-3) 0 % (0-3) Neutrophils # (Auto) 22.4 x10^3/uL (1.8-7.7) 12.6 x10^3/uL (1.8-7.7) Lymphocytes # (Auto) 2.0 x10^3/uL (1.0-4.8) 2.1 x10^3/uL (1.0-4.8) Monocytes # (Auto) 1.3 x10^3/uL (0.0-1.1) 1.4 x10^3/uL (0.0-1.1) Eosinophils # (Auto) 0.0 x10^3/uL (0.0-0.7) 0.0 x10^3/uL (0.0-0.7) Basophils # (Auto) 0.2 x10^3/uL (0.0-0.2) 0.0 x10^3/uL (0.0-0.2) Segmented Neutrophils % 87 % (35-66) Band Neutrophils % 3 % (0-9) Lymphocytes % 8 % (24-48) Monocytes % 2 % (0-10) Platelet Estimate Adequate (ADEQUATE) Sodium Level 137 mmol/L (136-145) 138 mmol/L (136-145) Potassium Level 3.9 mmol/L (3.5-5.1) 4.0 mmol/L (3.5-5.1) Chloride Level 85 mmol/L (98-107) 99 mmol/L (98-107) Carbon Dioxide Level 28 mmol/L (21-32) 31 mmol/L (21-32) Anion Gap 24 (6-14) 8 (6-14) Blood Urea Nitrogen 44 mg/dL (8-26) 33 mg/dL (8-26) Creatinine 7.0 mg/dL (0.7-1.3) 2.4 mg/dL (0.7-1.3) Estimated GFR (Cockcroft-Gault) 9.3 31.9 BUN/Creatinine Ratio 6 (6-20) 14 (6-20) Glucose Level 214 mg/dL (70-99) 114 mg/dL (70-99) Calcium Level 11.9 mg/dL (8.5-10.1) 8.7 mg/dL (8.5-10.1) Magnesium Level 2.9 mg/dL (1.8-2.4) Total Bilirubin 0.7 mg/dL (0.2-1.0) 0.8 mg/dL (0.2-1.0) Aspartate Amino Transf (AST/SGOT) 50 U/L (15-37) 68 U/L (15-37) Alanine Aminotransferase (ALT/SGPT) 40 U/L (16-63) 37 U/L (16-63) Alkaline Phosphatase 118 U/L (46-116) 80 U/L (46-116) Creatine Kinase 3140 U/L (39-308) Total Protein 11.0 g/dL (6.4-8.2) 7.3 g/dL (6.4-8.2) Albumin 5.7 g/dL (3.4-5.0) 3.7 g/dL (3.4-5.0) Albumin/Globulin Ratio 1.1 (1.0-1.7) 1.0 (1.0-1.7) Troponin I Quantitative 0.058 ng/mL (0.000-0.055) Laboratory Tests Test 03/08/20 14:05 03/08/20 14:15 03/09/20 04:18 Urine Collection Type Unknown Urine Color Mariely Urine Clarity Cloudy Urine pH 5.0 (<5.0-8.0) Urine Specific [place] 1.020 (1.000-1.030) Urine Protein 100 mg/dL (NEG-TRACE) Urine Glucose (UA) Negative mg/dL (NEG) Urine Ketones (Stick) Trace mg/dL (NEG) Urine Blood Trace (NEG) Urine Nitrite Negative (NEG) Urine Bilirubin Small (NEG) Urine Urobilinogen Dipstick 0.2 mg/dL (0.2 mg/dL) Urine Leukocyte Esterase Trace (NEG) Urine RBC 3-5 /HPF (0-2) Urine WBC 1-4 /HPF (0-4) Urine Squamous Epithelial Cells Few /LPF Urine Bacteria Few /HPF (0-FEW) Urine Hyaline Casts Moderate /HPF Urine Granular Casts Few /HPF Urine Mucus Slight /LPF Urine Opiates Screen Neg (NEG) Urine Methadone Screen Neg (NEG) Urine Barbiturates Neg (NEG) Urine Phencyclidine Screen Neg (NEG) Urine Amphetamine/Methamphetamine Pos (NEG) Urine Benzodiazepines Screen Neg (NEG) Urine Cocaine Screen Neg (NEG) Urine Cannabinoids Screen Pos (NEG) Urine Ethyl Alcohol Neg (NEG) White Blood Count 25.9 x10^3/uL (4.0-11.0) 16.1 x10^3/uL (4.0-11.0) Red Blood Count 6.41 x10^6/uL (4.30-5.70) 5.00 x10^6/uL (4.30-5.70) Hemoglobin 20.2 g/dL (13.0-17.5) 15.7 g/dL (13.0-17.5) Hematocrit 58.6 % (39.0-53.0) 45.9 % (39.0-53.0) Mean Corpuscular Volume 91 fL (79-100) 92 fL (79-100) Mean Corpuscular Hemoglobin 32 pg (25-35) 31 pg (25-35) Mean Corpuscular Hemoglobin Concent 35 g/dL (31-37) 34 g/dL (31-37) Red Cell Distribution Width 13.8 % (11.5-14.5) 13.4 % (11.5-14.5) Platelet Count 365 x10^3/uL (140-400) 237 x10^3/uL (140-400) Neutrophils (%) (Auto) 87 % (31-73) 78 % (31-73) Lymphocytes (%) (Auto) 8 % (24-48) 13 % (24-48) Monocytes (%) (Auto) 5 % (0-9) 9 % (0-9) Eosinophils (%) (Auto) 0 % (0-3) 0 % (0-3) Basophils (%) (Auto) 1 % (0-3) 0 % (0-3) Neutrophils # (Auto) 22.4 x10^3/uL (1.8-7.7) 12.6 x10^3/uL (1.8-7.7) Lymphocytes # (Auto) 2.0 x10^3/uL (1.0-4.8) 2.1 x10^3/uL (1.0-4.8) Monocytes # (Auto) 1.3 x10^3/uL (0.0-1.1) 1.4 x10^3/uL (0.0-1.1) Eosinophils # (Auto) 0.0 x10^3/uL (0.0-0.7) 0.0 x10^3/uL (0.0-0.7) Basophils # (Auto) 0.2 x10^3/uL (0.0-0.2) 0.0 x10^3/uL (0.0-0.2) Segmented Neutrophils % 87 % (35-66) Band Neutrophils % 3 % (0-9) Lymphocytes % 8 % (24-48) Monocytes % 2 % (0-10) Platelet Estimate Adequate (ADEQUATE) Sodium Level 137 mmol/L (136-145) 138 mmol/L (136-145) Potassium Level 3.9 mmol/L (3.5-5.1) 4.0 mmol/L (3.5-5.1) Chloride Level 85 mmol/L (98-107) 99 mmol/L (98-107) Carbon Dioxide Level 28 mmol/L (21-32) 31 mmol/L (21-32) Anion Gap 24 (6-14) 8 (6-14) Blood Urea Nitrogen 44 mg/dL (8-26) 33 mg/dL (8-26) Creatinine 7.0 mg/dL (0.7-1.3) 2.4 mg/dL (0.7-1.3) Estimated GFR (Cockcroft-Gault) 9.3 31.9 BUN/Creatinine Ratio 6 (6-20) 14 (6-20) Glucose Level 214 mg/dL (70-99) 114 mg/dL (70-99) Calcium Level 11.9 mg/dL (8.5-10.1) 8.7 mg/dL (8.5-10.1) Magnesium Level 2.9 mg/dL (1.8-2.4) Total Bilirubin 0.7 mg/dL (0.2-1.0) 0.8 mg/dL (0.2-1.0) Aspartate Amino Transf (AST/SGOT) 50 U/L (15-37) 68 U/L (15-37) Alanine Aminotransferase (ALT/SGPT) 40 U/L (16-63) 37 U/L (16-63) Alkaline Phosphatase 118 U/L (46-116) 80 U/L (46-116) Creatine Kinase 3140 U/L (39-308) Total Protein 11.0 g/dL (6.4-8.2) 7.3 g/dL (6.4-8.2) Albumin 5.7 g/dL (3.4-5.0) 3.7 g/dL (3.4-5.0) Albumin/Globulin Ratio 1.1 (1.0-1.7) 1.0 (1.0-1.7) Troponin I Quantitative 0.058 ng/mL (0.000-0.055) Review All relevant outside records, renal labs, imaging studies, telemetry/EKG's were reviewed. NNAMDI HANCOCK MD Mar 09, 2020 09:09
--- NOTE | 2020-03-09 10:29 | NUR ---
SS following for discharge planning. SS reviewed pt chart and discussed with pt RN. Pt is from home and is currently on room air. Pt is self pay pt and Frisian speaking only. SS will continue to follow for discharge planning.
[2020-03-09 11:00] VITALS: BP 111/61
[2020-03-09 15:00] VITALS: BP 130/83
[2020-03-09 19:00] VITALS: BP 138/75
[2020-03-09] MEDS: ONDANSETRON PF 4 MG/2 ML VIAL. IVP PRN (22:42)
[2020-03-09] MEDS ORDERED: ACETAMINOPHEN 325 MG TABLET. PO PRN (22:45)
[2020-03-09 23:00] VITALS: BP 148/76
[2020-03-10 02:48] VITALS: BP 135/77
[2020-03-10 05:26] LABS: ALBUMIN 3.6 g/dL (3.4-5.0); CREATININE 1.2 mg/dL (0.7-1.3); GFR 71.1; POTASSIUM 4.3 mmol/L (3.5-5.1); TOTAL PROTEIN 7.2 g/dL (6.4-8.2)
[2020-03-10] MEDS: ONDANSETRON PF 4 MG/2 ML VIAL. IVP PRN ×2 (06:37→12:06)
[2020-03-10 07:00] VITALS: BP 157/81
[2020-03-10] MEDS: IV NORMAL SALINE 1000ML BAG 1,000 ML IV SCH (08:38)
--- NOTE | 2020-03-10 08:54 | PDOC ---
PROGRESS NOTES Chief Complaint Chief Complaint A/P: Acute renal failure - likely vasomotor nephropathy with element of ATN from amphetamine use Leukocytosis - no clear infectious etiology, likely 2/2 rhabo Rhabdomyolysis - IVF resuscitation. Monitor LFTs, renal function Hypercalcemia - likely from dehydration, improved. will monitor Amphetamine positive UDS History of Present Illness History of Present Illness Mr Sam is a 29 yo M who presented to ER today by private vehicle complaining of nausea vomiting and muscle cramping since 03/07/2020 in the [facility]. Patient said he was working outside in the heat, became severely dehydrated. He has been feeling weak, dizzy, having cramping in his muscle in his leg and had back area. Patient denies any cough or fever. Patient also complained of cramping in his abdomen area, he had more cramping in his legs and his back then in his belly. Labs significant for WBC 25.9, [place] [address] creatinine 7, calcium 11.9, UDS positive for methamphetamines and cannabinoids. Admitted for further care 03/09: WBC 16.1 today, BUN 33 creatinine 2.4. He has no complaints today. CPK up to 3603, AST up to 68. CP 1905 today. Vomiting x3 overnight and x3 again this morning, no bowel movement. Cr down to 1.2. He is asking just to have liquids Plan: Protonix, GI cocktail, KUB Vitals Vitals Vital Signs Date Time Temp Pulse Resp B/P (MAP) Pulse Ox O2 Delivery O2 Flow Rate FiO2 03/10/20 07:00 98.1 58 18 157/81 (106) 99 Room Air 98.1 Physical Exam General: Alert Labs LABS Laboratory Tests Test 03/10/20 03:40 Sodium Level 137 mmol/L (136-145) Potassium Level 4.3 mmol/L (3.5-5.1) Chloride Level 100 mmol/L (98-107) Carbon Dioxide Level 26 mmol/L (21-32) Anion Gap 11 (6-14) Blood Urea Nitrogen 21 mg/dL (8-26) Creatinine 1.2 mg/dL (0.7-1.3) Estimated GFR (Cockcroft-Gault) 71.1 BUN/Creatinine Ratio 18 (6-20) Glucose Level 100 mg/dL (70-99) Calcium Level 9.0 mg/dL (8.5-10.1) Total Bilirubin 1.0 mg/dL (0.2-1.0) Aspartate Amino Transf (AST/SGOT) 75 U/L (15-37) Alanine Aminotransferase (ALT/SGPT) 51 U/L (16-63) Alkaline Phosphatase 78 U/L (46-116) Creatine Kinase 1905 U/L (39-308) Total Protein 7.2 g/dL (6.4-8.2) Albumin 3.6 g/dL (3.4-5.0) Albumin/Globulin Ratio 1.0 (1.0-1.7) Assessment and Plan Assessmemt and Plan Problems Medical Problems: (1) Acute renal failure Status: Acute (2) Dehydration Status: Acute (3) Rhabdomyolysis Status: Acute Comment Review of Relevant I have reviewed the following items gilberto (where applicable) has been applied. Labs Laboratory Tests Test 03/08/20 14:05 03/08/20 14:15 03/09/20 04:18 03/10/20 03:40 Urine Collection Type Unknown Urine Color Mariely Urine Clarity Cloudy Urine pH 5.0 (<5.0-8.0) Urine Specific [place] 1.020 (1.000-1.030) Urine Protein 100 mg/dL (NEG-TRACE) Urine Glucose (UA) Negative mg/dL (NEG) Urine Ketones (Stick) Trace mg/dL (NEG) Urine Blood Trace (NEG) Urine Nitrite Negative (NEG) Urine Bilirubin Small (NEG) Urine Urobilinogen Dipstick 0.2 mg/dL (0.2 mg/dL) Urine Leukocyte Esterase Trace (NEG) Urine RBC 3-5 /HPF (0-2) Urine WBC 1-4 /HPF (0-4) Urine Squamous Epithelial Cells Few /LPF Urine Bacteria Few /HPF (0-FEW) Urine Hyaline Casts Moderate /HPF Urine Granular Casts Few /HPF Urine Mucus Slight /LPF Urine Opiates Screen Neg (NEG) Urine Methadone Screen Neg (NEG) Urine Barbiturates Neg (NEG) Urine Phencyclidine Screen Neg (NEG) Urine Amphetamine/Methamphetamine Pos (NEG) Urine Benzodiazepines Screen Neg (NEG) Urine Cocaine Screen Neg (NEG) Urine Cannabinoids Screen Pos (NEG) Urine Ethyl Alcohol Neg (NEG) White Blood Count 25.9 x10^3/uL (4.0-11.0) 16.1 x10^3/uL (4.0-11.0) Red Blood Count 6.41 x10^6/uL (4.30-5.70) 5.00 x10^6/uL (4.30-5.70) Hemoglobin 20.2 g/dL (13.0-17.5) 15.7 g/dL (13.0-17.5) Hematocrit 58.6 % (39.0-53.0) 45.9 % (39.0-53.0) Mean Corpuscular Volume 91 fL (79-100) 92 fL (79-100) Mean Corpuscular Hemoglobin 32 pg (25-35) 31 pg (25-35) Mean Corpuscular Hemoglobin Concent 35 g/dL (31-37) 34 g/dL (31-37) Red Cell Distribution Width 13.8 % (11.5-14.5) 13.4 % (11.5-14.5) Platelet Count 365 x10^3/uL (140-400) 237 x10^3/uL (140-400) Neutrophils (%) (Auto) 87 % (31-73) 78 % (31-73) Lymphocytes (%) (Auto) 8 % (24-48) 13 % (24-48) Monocytes (%) (Auto) 5 % (0-9) 9 % (0-9) Eosinophils (%) (Auto) 0 % (0-3) 0 % (0-3) Basophils (%) (Auto) 1 % (0-3) 0 % (0-3) Neutrophils # (Auto) 22.4 x10^3/uL (1.8-7.7) 12.6 x10^3/uL (1.8-7.7) Lymphocytes # (Auto) 2.0 x10^3/uL (1.0-4.8) 2.1 x10^3/uL (1.0-4.8) Monocytes # (Auto) 1.3 x10^3/uL (0.0-1.1) 1.4 x10^3/uL (0.0-1.1) Eosinophils # (Auto) 0.0 x10^3/uL (0.0-0.7) 0.0 x10^3/uL (0.0-0.7) Basophils # (Auto) 0.2 x10^3/uL (0.0-0.2) 0.0 x10^3/uL (0.0-0.2) Segmented Neutrophils % 87 % (35-66) Band Neutrophils % 3 % (0-9) Lymphocytes % 8 % (24-48) Monocytes % 2 % (0-10) Platelet Estimate Adequate (ADEQUATE) Sodium Level 137 mmol/L (136-145) 138 mmol/L (136-145) 137 mmol/L (136-145) Potassium Level 3.9 mmol/L (3.5-5.1) 4.0 mmol/L (3.5-5.1) 4.3 mmol/L (3.5-5.1) Chloride Level 85 mmol/L (98-107) 99 mmol/L (98-107) 100 mmol/L (98-107) Carbon Dioxide Level 28 mmol/L (21-32) 31 mmol/L (21-32) 26 mmol/L (21-32) Anion Gap 24 (6-14) 8 (6-14) 11 (6-14) Blood Urea Nitrogen 44 mg/dL (8-26) 33 mg/dL (8-26) 21 mg/dL (8-26) Creatinine 7.0 mg/dL (0.7-1.3) 2.4 mg/dL (0.7-1.3) 1.2 mg/dL (0.7-1.3) Estimated GFR (Cockcroft-Gault) 9.3 31.9 71.1 BUN/Creatinine Ratio 6 (6-20) 14 (6-20) 18 (6-20) Glucose Level 214 mg/dL (70-99) 114 mg/dL (70-99) 100 mg/dL (70-99) Calcium Level 11.9 mg/dL (8.5-10.1) 8.7 mg/dL (8.5-10.1) 9.0 mg/dL (8.5-10.1) Magnesium Level 2.9 mg/dL (1.8-2.4) Total Bilirubin 0.7 mg/dL (0.2-1.0) 0.8 mg/dL (0.2-1.0) 1.0 mg/dL (0.2-1.0) Aspartate Amino Transf (AST/SGOT) 50 U/L (15-37) 68 U/L (15-37) 75 U/L (15-37) Alanine Aminotransferase (ALT/SGPT) 40 U/L (16-63) 37 U/L (16-63) 51 U/L (16-63) Alkaline Phosphatase 118 U/L (46-116) 80 U/L (46-116) 78 U/L (46-116) Creatine Kinase 3140 U/L (39-308) 3603 U/L (39-308) 1905 U/L (39-308) Total Protein 11.0 g/dL (6.4-8.2) 7.3 g/dL (6.4-8.2) 7.2 g/dL (6.4-8.2) Albumin 5.7 g/dL (3.4-5.0) 3.7 g/dL (3.4-5.0) 3.6 g/dL (3.4-5.0) Albumin/Globulin Ratio 1.1 (1.0-1.7) 1.0 (1.0-1.7) 1.0 (1.0-1.7) Troponin I Quantitative 0.058 ng/mL (0.000-0.055) Laboratory Tests Test 03/10/20 03:40 Sodium Level 137 mmol/L (136-145) Potassium Level 4.3 mmol/L (3.5-5.1) Chloride Level 100 mmol/L (98-107) Carbon Dioxide Level 26 mmol/L (21-32) Anion Gap 11 (6-14) Blood Urea Nitrogen 21 mg/dL (8-26) Creatinine 1.2 mg/dL (0.7-1.3) Estimated GFR (Cockcroft-Gault) 71.1 BUN/Creatinine Ratio 18 (6-20) Glucose Level 100 mg/dL (70-99) Calcium Level 9.0 mg/dL (8.5-10.1) Total Bilirubin 1.0 mg/dL (0.2-1.0) Aspartate Amino Transf (AST/SGOT) 75 U/L (15-37) Alanine Aminotransferase (ALT/SGPT) 51 U/L (16-63) Alkaline Phosphatase 78 U/L (46-116) Creatine Kinase 1905 U/L (39-308) Total Protein 7.2 g/dL (6.4-8.2) Albumin 3.6 g/dL (3.4-5.0) Albumin/Globulin Ratio 1.0 (1.0-1.7) Medications Current Medications Sodium Chloride 1,000 ml @ 1,000 mls/hr 1X ONCE IV Last administered on 03/08/20at 14:44; Start 03/08/20 at 14:45; Stop 03/08/20 at 15:44; Status DC Sodium Chloride 1,000 ml @ 1,000 mls/hr 1X ONCE IV Last administered on 03/08/20at 14:45; Start 03/08/20 at 14:45; Stop 03/08/20 at 15:44; Status DC Sodium Chloride 1,000 ml @ 1,000 mls/hr 1X ONCE IV Last administered on 03/08/20at 16:10; Start 03/08/20 at 15:30; Stop 03/08/20 at 16:29; Status DC Morphine Sulfate (Morphine Sulfate) 2 mg 1X ONCE IV Last administered on 03/08/20at 16:09; Start 03/08/20 at 15:30; Stop 03/08/20 at 15:31; Status DC Ondansetron HCl (Zofran) 4 mg PRN Q8HRS PRN IV NAUSEA/VOMITING Last administered on 03/09/20at 13:11; Start 03/08/20 at 15:45; Stop 03/09/20 at 15:44; Status DC Morphine Sulfate (Morphine Sulfate) 2 mg PRN Q2HR PRN IV PAIN Last administered on 03/08/20at 17:49; Start 03/08/20 at 15:45; Stop 03/09/20 at 15:44; Status DC Sodium Chloride 1,000 ml @ 125 mls/hr Q8H IV Last administered on 03/10/20at 08:38; Start 03/08/20 at 15:38; Stop 03/10/20 at 15:37 Ondansetron HCl (Zofran) 4 mg PRN Q4HRS PRN IVP NAUSEA/VOMITING Last administered on 03/10/20at 06:37; Start 03/09/20 at 22:15 Acetaminophen (Tylenol) 650 mg PRN Q6HRS PRN PO PAIN Last administered on 03/09/20at 22:42; Start 03/09/20 at 22:45 Vitals/I & O Vital Sign - Last 24 Hours 03/09/20 03/09/20 03/09/20 03/09/20 11:00 15:00 19:00 20:00 Temp 98.5 98.0 98.3 98.5 98.0 98.3 Pulse 69 65 65 Resp 18 18 19 B/P (MAP) 111/61 (78) 130/83 (99) 138/75 (96) Pulse Ox 97 98 100 O2 Delivery Room Air Room Air Room Air Room Air 03/09/20 03/10/20 03/10/20 23:00 02:48 07:00 Temp 98.2 98.0 98.1 98.2 98.0 98.1 Pulse 62 70 58 Resp 18 18 18 B/P (MAP) 148/76 (100) 135/77 (96) 157/81 (106) Pulse Ox 97 100 99 O2 Delivery Room Air Room Air Room Air Intake and Output 03/09/20 03/09/20 03/10/20 15:00 23:00 07:00 Intake Total 850 ml 800 ml 200 ml Output Total 750 ml 400 ml Balance 850 ml 50 ml -200 ml Justicifation of Admission Dx: Justifications for Admission: Justification of Admission Dx: Yes Acute Renal Failure: Serum Cr > 4mg/dL SHANTEL RIZO MD Mar 10, 2020 08:54
--- NOTE | 2020-03-10 09:05 | PDOC ---
SUBJECTIVE ROS Vomiting since last night OBJECTIVE Vital Signs Vital Signs Date Time Temp Pulse Resp B/P (MAP) Pulse Ox O2 Delivery O2 Flow Rate FiO2 03/10/20 07:00 98.1 58 18 157/81 (106) 99 Room Air 98.1 I & 0 Intake and Output 03/10/20 07:00 Intake Total 1850 ml Output Total 1150 ml Balance 700 ml Intake Oral 1850 ml Output Emesis 1150 ml # Voids 1 PHYSICAL EXAM Physical Exam GEN: NAD HEEN: OM moist NECK: supple CVS: S1S2, RESP: CTA, No Acc. Muscle Use GI: BS + ve, Non Tender, Non Distended : No CVA tenderness, No Suprapubic Tenderness, No Mantilla NEURO- Grossly normal SKIN No rash EXT No LE edema DIAGNOSIS/ASSESSMENT Assessment & Plan Acute renal failure - vasomotor /Dehydration /Mild Rhabdo Cr 7.0 at presentation Improving with IVF 1.2 this am Supportive care, avoid nephrotoxins, strict I/O Vomiting- since last night Continue IVF Amphetamine positive - UDS ordered, though pt denied any use of illegal drugs Also Positive for Cannabinoids Rhabdo- Mild , 2/2 Heat exhausation/Meth CK improving Hypercalcemia - likely from dehydration, Resolved Leukocytosis- Likely hemoconc COMMENT/RELEVANT DATA Meds Current Medications Medications (Trade) Dose Ordered Sig/Gilbert Start Time Stop Time Status Last Admin Dose Admin Acetaminophen (Tylenol) 650 mg PRN Q6HRS PRN 03/09/20 22:45 03/09/20 22:42 650 MG Morphine Sulfate (Morphine Sulfate) 2 mg PRN Q2HR PRN 03/08/20 15:45 03/09/20 15:44 DC 03/08/20 17:49 2 MG Ondansetron HCl (Zofran) 4 mg PRN Q4HRS PRN 03/09/20 22:15 03/10/20 06:37 4 MG Sodium Chloride 1,000 ml @ 125 mls/hr Q8H 03/08/20 15:38 03/10/20 15:37 03/10/20 08:38 125 MLS/HR Lab Laboratory Tests Test 03/10/20 03:40 Sodium Level 137 mmol/L (136-145) Potassium Level 4.3 mmol/L (3.5-5.1) Chloride Level 100 mmol/L (98-107) Carbon Dioxide Level 26 mmol/L (21-32) Anion Gap 11 (6-14) Blood Urea Nitrogen 21 mg/dL (8-26) Creatinine 1.2 mg/dL (0.7-1.3) Estimated GFR (Cockcroft-Gault) 71.1 BUN/Creatinine Ratio 18 (6-20) Glucose Level 100 mg/dL (70-99) Calcium Level 9.0 mg/dL (8.5-10.1) Total Bilirubin 1.0 mg/dL (0.2-1.0) Aspartate Amino Transf (AST/SGOT) 75 U/L (15-37) Alanine Aminotransferase (ALT/SGPT) 51 U/L (16-63) Alkaline Phosphatase 78 U/L (46-116) Creatine Kinase 1905 U/L (39-308) Total Protein 7.2 g/dL (6.4-8.2) Albumin 3.6 g/dL (3.4-5.0) Albumin/Globulin Ratio 1.0 (1.0-1.7) Results All relevant outside records, renal labs, imaging studies, telemetry/EKG's were reviewed. Justicifation of Admission Dx: Justifications for Admission: Justification of Admission Dx: Yes Acute Renal Failure: Serum Cr > 4mg/dL NNAMDI HANCOCK MD Mar 10, 2020 09:05
[2020-03-10 11:00] VITALS: BP 148/81
[2020-03-10] MEDS ORDERED: LIDO:MAALOX 1:1 20 ML SINGLE DOSE. SWSW ONE (11:45)
[2020-03-10] MEDS ORDERED: PANTOPRAZOLE IV PUSH 40 MG VIAL. IVP ONE (12:30)
--- NOTE | 2020-03-10 14:23 | NUR ---
SS following up with discharge planning. SS reviewed pt chart and discussed with pt RN. Pt is currently on room air. Pt self pay pt. Discharge plan is to home when ready. SS will continue to follow for discharge planning.
[2020-03-10 15:00] VITALS: BP 140/90
--- NOTE | 2020-03-10 16:13 | RAD ---
EXAM: ABDOMEN ONE VIEW. HISTORY: Vomiting. COMPARISON: None. FINDINGS: A frontal view of the abdomen is obtained. There are no distended small bowel loops. There is gas distally. IMPRESSION: 1. No evidence of obstruction. Electronically signed by: Joao Cho MD (03/10/2020 4:11 PM) [id number]
[2020-03-10 19:52] VITALS: BP 156/92
[2020-03-10 22:39] VITALS: BP 143/87
[2020-03-11 03:00] VITALS: BP 140/92
[2020-03-11 06:20] LABS: ALBUMIN 3.7 g/dL (3.4-5.0); CREATININE 1.2 mg/dL (0.7-1.3); GFR 71.1; POTASSIUM 4.1 mmol/L (3.5-5.1); TOTAL PROTEIN 7.4 g/dL (6.4-8.2)
[2020-03-11 07:00] VITALS: BP 160/98
--- NOTE | 2020-03-11 08:37 | PDOC ---
PROGRESS NOTES Chief Complaint Chief Complaint A/P: Acute renal failure - likely vasomotor nephropathy with element of ATN from amphetamine use Leukocytosis - no clear infectious etiology, likely 2/2 rhabo Rhabdomyolysis - IVF resuscitation. Monitor LFTs, renal function Hypercalcemia - likely from dehydration, improved. will monitor Amphetamine positive UDS History of Present Illness History of Present Illness Mr Sam is a 29 yo M who presented to ER today by private vehicle complaining of nausea vomiting and muscle cramping since 03/07/2020 in the [facility]. Patient said he was working outside in the heat, became severely dehydrated. He has been feeling weak, dizzy, having cramping in his muscle in his leg and had back area. Patient denies any cough or fever. Patient also complained of cramping in his abdomen area, he had more cramping in his legs and his back then in his belly. Labs significant for WBC 25.9, [place] [address] creatinine 7, calcium 11.9, UDS positive for methamphetamines and cannabinoids. Admitted for further care 03/09: WBC 16.1 today, BUN 33 creatinine 2.4. He has no complaints today. CPK up to 3603, AST up to 68. 03/10: CP 1905 today. Vomiting x3 overnight and x3 again this morning, no bowel movement. Cr down to 1.2. He is asking just to have liquids CPK 785 today, AST 50, Cr 1.2, stable. Na 133. No further vomiting, tolerating full liquid and soft foods well. Plan: Home today Vitals Vitals Vital Signs Date Time Temp Pulse Resp B/P (MAP) Pulse Ox O2 Delivery O2 Flow Rate FiO2 03/11/20 07:53 Room Air 03/11/20 03:00 97.9 58 18 140/92 (108) 97 97.9 Physical Exam General: Alert, Oriented X3, Cooperative Heart: Regular rate, Normal S1, Normal S2 Lungs: Clear Abdomen: Normal bowel sounds, Soft Extremities: No clubbing, No cyanosis Skin: No rashes, No breakdown Labs LABS Laboratory Tests Test 03/11/20 04:00 Sodium Level 133 mmol/L (136-145) Potassium Level 4.1 mmol/L (3.5-5.1) Chloride Level 98 mmol/L (98-107) Carbon Dioxide Level 28 mmol/L (21-32) Anion Gap 7 (6-14) Blood Urea Nitrogen 15 mg/dL (8-26) Creatinine 1.2 mg/dL (0.7-1.3) Estimated GFR (Cockcroft-Gault) 71.1 BUN/Creatinine Ratio 13 (6-20) Glucose Level 109 mg/dL (70-99) Calcium Level 9.0 mg/dL (8.5-10.1) Total Bilirubin 1.0 mg/dL (0.2-1.0) Aspartate Amino Transf (AST/SGOT) 50 U/L (15-37) Alanine Aminotransferase (ALT/SGPT) 50 U/L (16-63) Alkaline Phosphatase 68 U/L (46-116) Creatine Kinase 785 U/L (39-308) Total Protein 7.4 g/dL (6.4-8.2) Albumin 3.7 g/dL (3.4-5.0) Albumin/Globulin Ratio 1.0 (1.0-1.7) Assessment and Plan Assessmemt and Plan Problems Medical Problems: (1) Acute renal failure Status: Acute (2) Dehydration Status: Acute (3) Rhabdomyolysis Status: Acute Comment Review of Relevant I have reviewed the following items gilberto (where applicable) has been applied. Labs Laboratory Tests Test 03/10/20 03:40 03/11/20 04:00 Sodium Level 137 mmol/L (136-145) 133 mmol/L (136-145) Potassium Level 4.3 mmol/L (3.5-5.1) 4.1 mmol/L (3.5-5.1) Chloride Level 100 mmol/L (98-107) 98 mmol/L (98-107) Carbon Dioxide Level 26 mmol/L (21-32) 28 mmol/L (21-32) Anion Gap 11 (6-14) 7 (6-14) Blood Urea Nitrogen 21 mg/dL (8-26) 15 mg/dL (8-26) Creatinine 1.2 mg/dL (0.7-1.3) 1.2 mg/dL (0.7-1.3) Estimated GFR (Cockcroft-Gault) 71.1 71.1 BUN/Creatinine Ratio 18 (6-20) 13 (6-20) Glucose Level 100 mg/dL (70-99) 109 mg/dL (70-99) Calcium Level 9.0 mg/dL (8.5-10.1) 9.0 mg/dL (8.5-10.1) Total Bilirubin 1.0 mg/dL (0.2-1.0) 1.0 mg/dL (0.2-1.0) Aspartate Amino Transf (AST/SGOT) 75 U/L (15-37) 50 U/L (15-37) Alanine Aminotransferase (ALT/SGPT) 51 U/L (16-63) 50 U/L (16-63) Alkaline Phosphatase 78 U/L (46-116) 68 U/L (46-116) Creatine Kinase 1905 U/L (39-308) 785 U/L (39-308) Total Protein 7.2 g/dL (6.4-8.2) 7.4 g/dL (6.4-8.2) Albumin 3.6 g/dL (3.4-5.0) 3.7 g/dL (3.4-5.0) Albumin/Globulin Ratio 1.0 (1.0-1.7) 1.0 (1.0-1.7) Laboratory Tests Test 03/11/20 04:00 Sodium Level 133 mmol/L (136-145) Potassium Level 4.1 mmol/L (3.5-5.1) Chloride Level 98 mmol/L (98-107) Carbon Dioxide Level 28 mmol/L (21-32) Anion Gap 7 (6-14) Blood Urea Nitrogen 15 mg/dL (8-26) Creatinine 1.2 mg/dL (0.7-1.3) Estimated GFR (Cockcroft-Gault) 71.1 BUN/Creatinine Ratio 13 (6-20) Glucose Level 109 mg/dL (70-99) Calcium Level 9.0 mg/dL (8.5-10.1) Total Bilirubin 1.0 mg/dL (0.2-1.0) Aspartate Amino Transf (AST/SGOT) 50 U/L (15-37) Alanine Aminotransferase (ALT/SGPT) 50 U/L (16-63) Alkaline Phosphatase 68 U/L (46-116) Creatine Kinase 785 U/L (39-308) Total Protein 7.4 g/dL (6.4-8.2) Albumin 3.7 g/dL (3.4-5.0) Albumin/Globulin Ratio 1.0 (1.0-1.7) Microbiology 03/08/20 Urine Culture - Final, Complete Medications Current Medications Sodium Chloride 1,000 ml @ 1,000 mls/hr 1X ONCE IV Last administered on 03/08/20 14:44; Start 03/08/20 at 14:45; Stop 03/08/20 at 15:44; Status DC Sodium Chloride 1,000 ml @ 1,000 mls/hr 1X ONCE IV Last administered on 03/08/20at 14:45; Start 03/08/20 at 14:45; Stop 03/08/20 at 15:44; Status DC Sodium Chloride 1,000 ml @ 1,000 mls/hr 1X ONCE IV Last administered on 03/08/20at 16:10; Start 03/08/20 at 15:30; Stop 03/08/20 at 16:29; Status DC Morphine Sulfate (Morphine Sulfate) 2 mg 1X ONCE IV Last administered on 03/08/20at 16:09; Start 03/08/20 at 15:30; Stop 03/08/20 at 15:31; Status DC Ondansetron HCl (Zofran) 4 mg PRN Q8HRS PRN IV NAUSEA/VOMITING Last adminis tered on 03/09/20at 13:11; Start 03/08/20 at 15:45; Stop 03/09/20 at 15:44; Status DC Morphine Sulfate (Morphine Sulfate) 2 mg PRN Q2HR PRN IV PAIN Last administered on 03/08/20 17:49; Start 03/08/20 at 15:45; Stop 03/09/20 at 15:44; Status DC Sodium Chloride 1,000 ml @ 125 mls/hr Q8H IV Last administered on 03/10/20 08:38; Start 03/08/20 at 15:38; Stop 03/10/20 at 15:37; Status DC Ondansetron HCl (Zofran) 4 mg PRN Q4HRS PRN IVP NAUSEA/VOMITING Last administered on 03/10/20at 12:06; Start 03/09/20 at 22:15 Acetaminophen (Tylenol) 650 mg PRN Q6HRS PRN PO PAIN Last administered on 03/09/20at 22:42; Start 03/09/20 at 22:45 Multi-Ingredient Mouthwash/Gargle (Gi Cocktail) 20 ml 1X ONCE SWSW Last administered on 03/10/20at 12:06; Start 03/10/20 at 11:45; Stop 03/10/20 at 11:51; Status DC Pantoprazole Sodium (PROTONIX VIAL for IV PUSH) 40 mg 1X ONCE IVP Last administered on 03/10/20at 14:44; Start 03/10/20 at 12:30; Stop 03/10/20 at 12:31; Status DC Vitals/I & O Vital Sign - Last 24 Hours 03/10/20 03/10/20 03/10/20 03/10/20 11:00 15:00 19:52 20:00 Temp 98.6 98.6 98.4 98.6 98.6 98.4 Pulse 65 54 58 Resp 18 18 18 B/P (MAP) 148/81 (103) 140/90 (107) 156/92 (113) Pulse Ox 98 98 94 O2 Delivery Room Air Room Air Room Air Room Air 03/10/20 03/11/20 03/11/20 22:39 03:00 07:53 Temp 99.3 97.9 99.3 97.9 Pulse 68 58 Resp 18 18 B/P (MAP) 143/87 (105) 140/92 (108) Pulse Ox 95 97 O2 Delivery Room Air Room Air Room Air Intake and Output 03/10/20 03/10/20 03/11/20 15:00 23:00 07:00 Intake Total 380 ml 700 ml 0 ml Output Total 750 ml Balance -370 ml 700 ml 0 ml Justicifation of Admission Dx: Justifications for Admission: Justification of Admission Dx: Yes Acute Renal Failure: Serum Cr > 4mg/dL SHANTEL RIZO MD Mar 11, 2020 08:37
--- NOTE | 2020-03-11 09:20 | PDOC ---
SUBJECTIVE ROS stable, No more vomiting, No complaints OBJECTIVE Vital Signs Vital Signs Date Time Temp Pulse Resp B/P (MAP) Pulse Ox O2 Delivery O2 Flow Rate FiO2 03/11/20 07:53 Room Air 03/11/20 07:00 97.4 52 18 160/98 (118) 97 97.4 I & 0 Intake and Output 03/11/20 07:00 Intake Total 1080 ml Output Total 750 ml Balance 330 ml Intake Oral 1080 ml Output Emesis 750 ml # Voids 5 PHYSICAL EXAM Physical Exam GEN: NAD HEEN: OM moist NECK: supple CVS: S1S2, RESP: CTA, No Acc. Muscle Use GI: BS + ve, Non Tender, Non Distended : No CVA tenderness, No Suprapubic Tenderness, No Mantilla NEURO- Grossly normal SKIN No rash EXT No LE edema DIAGNOSIS/ASSESSMENT Assessment & Plan Acute renal failure - vasomotor /Dehydration /Mild Rhabdo Cr 7.0 at presentation Improved to 1.2 with IVF , baseline unknown Supportive care, avoid nephrotoxins, Follow with PCP post dc Hyponatremia - Mild , monitor Vomiting- resolved Amphetamine positive - UDS ordered, though pt denied any use of illegal drugs Also Positive for Cannabinoids Rhabdo- Mild , 2/2 Heat exhausation/Meth CK improving Hypercalcemia - likely from dehydration, Resolved Leukocytosis- Likely hemoconc COMMENT/RELEVANT DATA Meds Current Medications Medications (Trade) Dose Ordered Sig/Gilbert Start Time Stop Time Status Last Admin Dose Admin Acetaminophen (Tylenol) 650 mg PRN Q6HRS PRN 03/09/20 22:45 03/09/20 22:42 650 MG Morphine Sulfate (Morphine Sulfate) 2 mg PRN Q2HR PRN 03/08/20 15:45 03/09/20 15:44 DC 03/08/20 17:49 2 MG Multi-Ingredient Mouthwash/Gargle (Gi Cocktail) 20 ml 1X ONCE 03/10/20 11:45 03/10/20 11:51 DC 03/10/20 12:06 20 ML Ondansetron HCl (Zofran) 4 mg PRN Q4HRS PRN 03/09/20 22:15 03/10/20 12:06 4 MG Pantoprazole Sodium (PROTONIX VIAL for IV PUSH) 40 mg 1X ONCE 03/10/20 12:30 03/10/20 12:31 DC 03/10/20 14:44 40 MG Sodium Chloride 1,000 ml @ 125 mls/hr Q8H 03/08/20 15:38 03/10/20 15:37 DC 03/10/20 08:38 125 MLS/HR Lab Laboratory Tests Test 03/11/20 04:00 Sodium Level 133 mmol/L (136-145) Potassium Level 4.1 mmol/L (3.5-5.1) Chloride Level 98 mmol/L (98-107) Carbon Dioxide Level 28 mmol/L (21-32) Anion Gap 7 (6-14) Blood Urea Nitrogen 15 mg/dL (8-26) Creatinine 1.2 mg/dL (0.7-1.3) Estimated GFR (Cockcroft-Gault) 71.1 BUN/Creatinine Ratio 13 (6-20) Glucose Level 109 mg/dL (70-99) Calcium Level 9.0 mg/dL (8.5-10.1) Total Bilirubin 1.0 mg/dL (0.2-1.0) Aspartate Amino Transf (AST/SGOT) 50 U/L (15-37) Alanine Aminotransferase (ALT/SGPT) 50 U/L (16-63) Alkaline Phosphatase 68 U/L (46-116) Creatine Kinase 785 U/L (39-308) Total Protein 7.4 g/dL (6.4-8.2) Albumin 3.7 g/dL (3.4-5.0) Albumin/Globulin Ratio 1.0 (1.0-1.7) Results All relevant outside records, renal labs, imaging studies, telemetry/EKG's were reviewed. Justicifation of Admission Dx: Justifications for Admission: Justification of Admission Dx: Yes Acute Renal Failure: Serum Cr > 4mg/dL [id number] HANCOCK MD Mar 11, 2020 09:20
[2020-03-11 11:00] VITALS: BP 156/102
--- NOTE | 2020-03-11 11:27 | PDOC3 ---
Discharge Summary Visit Information Date of Admission: Mar 08, 2020 Date of Discharge: Mar 11, 2020 Admitting Diagnosis: Rhabdomyolysis Final Diagnosis Problems Medical Problems: (1) Acute renal failure Status: Acute (2) Dehydration Status: Acute (3) Rhabdomyolysis Status: Acute Brief Hospital Course Allergies Allergies Coded Allergies Type Severity Reaction Last Updated Verified No Known Drug Allergies 03/08/20 No Vital Signs Vital Signs Date Time Temp Pulse Resp B/P (MAP) Pulse Ox O2 Delivery O2 Flow Rate FiO2 03/11/20 11:00 98.1 51 18 156/102 (120) 97 Room Air 98.1 Lab Results Laboratory Tests Test 03/10/20 03:40 03/11/20 04:00 Sodium Level 137 mmol/L (136-145) 133 mmol/L (136-145) Potassium Level 4.3 mmol/L (3.5-5.1) 4.1 mmol/L (3.5-5.1) Chloride Level 100 mmol/L (98-107) 98 mmol/L (98-107) Carbon Dioxide Level 26 mmol/L (21-32) 28 mmol/L (21-32) Anion Gap 11 (6-14) 7 (6-14) Blood Urea Nitrogen 21 mg/dL (8-26) 15 mg/dL (8-26) Creatinine 1.2 mg/dL (0.7-1.3) 1.2 mg/dL (0.7-1.3) Estimated GFR (Cockcroft-Gault) 71.1 71.1 BUN/Creatinine Ratio 18 (6-20) 13 (6-20) Glucose Level 100 mg/dL (70-99) 109 mg/dL (70-99) Calcium Level 9.0 mg/dL (8.5-10.1) 9.0 mg/dL (8.5-10.1) Total Bilirubin 1.0 mg/dL (0.2-1.0) 1.0 mg/dL (0.2-1.0) Aspartate Amino Transf (AST/SGOT) 75 U/L (15-37) 50 U/L (15-37) Alanine Aminotransferase (ALT/SGPT) 51 U/L (16-63) 50 U/L (16-63) Alkaline Phosphatase 78 U/L (46-116) 68 U/L (46-116) Creatine Kinase 1905 U/L (39-308) 785 U/L (39-308) Total Protein 7.2 g/dL (6.4-8.2) 7.4 g/dL (6.4-8.2) Albumin 3.6 g/dL (3.4-5.0) 3.7 g/dL (3.4-5.0) Albumin/Globulin Ratio 1.0 (1.0-1.7) 1.0 (1.0-1.7) Laboratory Tests Test 03/11/20 04:00 Sodium Level 133 mmol/L (136-145) Potassium Level 4.1 mmol/L (3.5-5.1) Chloride Level 98 mmol/L (98-107) Carbon Dioxide Level 28 mmol/L (21-32) Anion Gap 7 (6-14) Blood Urea Nitrogen 15 mg/dL (8-26) Creatinine 1.2 mg/dL (0.7-1.3) Estimated GFR (Cockcroft-Gault) 71.1 BUN/Creatinine Ratio 13 (6-20) Glucose Level 109 mg/dL (70-99) Calcium Level 9.0 mg/dL (8.5-10.1) Total Bilirubin 1.0 mg/dL (0.2-1.0) Aspartate Amino Transf (AST/SGOT) 50 U/L (15-37) Alanine Aminotransferase (ALT/SGPT) 50 U/L (16-63) Alkaline Phosphatase 68 U/L (46-116) Creatine Kinase 785 U/L (39-308) Total Protein 7.4 g/dL (6.4-8.2) Albumin 3.7 g/dL (3.4-5.0) Albumin/Globulin Ratio 1.0 (1.0-1.7) Brief Hospital Course Mr Sam is a 29 yo M who presented to ER today by private vehicle complaining of nausea vomiting and muscle cramping since 03/07/[address] [facility]. Patient said he was working outside in the heat, became severely dehydrated. He has been feeling weak, dizzy, having cramping in his muscle in his leg and had back area. Patient denies any cough or fever. Patient also complained of cramping in his abdomen area, he had more cramping in his legs and his back then in his belly. Labs significant for WBC 25.9, [place] [address] creatinine 7, calcium 11.9, UDS positive for methamphetamines and cannabinoids. Admitted for further care 03/09: WBC 16.1 today, BUN 33 creatinine 2.4. He has no complaints today. CPK up to 3603, AST up to 68. 03/10: CP 1905 today. Vomiting x3 overnight and x3 again this morning, no bowel movement. Cr down to 1.2. He is asking just to have liquids CPK 785 today, AST 50, Cr 1.2, stable. Na 133. No further vomiting, tolerating full liquid and soft foods well. Problem List: Acute renal failure - likely vasomotor nephropathy with element of ATN from amphetamine use Leukocytosis - no clear infectious etiology, likely 2/2 rhabo Rhabdomyolysis - IVF resuscitation. Monitor LFTs, renal function Hypercalcemia - likely from dehydration, improved. will monitor Amphetamine positive UDS Plan: Home today Greater than 30 minutes spent on d/c Discharge Information Condition at Discharge: Improved Follow Up: Weeks Disposition/Orders: D/C to Home No Active Prescriptions or Reported Meds Justicifation of Admission Dx: Justifications for Admission: Justification of Admission Dx: Yes Acute Renal Failure: Serum Cr > 4mg/dL SHANTEL RIZO MD Mar 11, 2020 11:27
--- NOTE | 2020-03-11 12:45 | NUR ---
Discharge Note: SARAHI COOPER Discharge instructions and discharge home medications reviewed with Patient and a copy given. All questions have been answered and understanding verbalized. The following instructions and handouts were given: dehydration and rhabdomyolysis Discontinued lines and drains: Peripheral IV intact. Patient discharged to Home or Self Care with Self via Ambulated
== END 2020-03-11 12:45 | disposition home or self-care (01) | DRG 917 ==
LOC: ER 14:01 → 2 NORTH 15:37
PROVIDERS: ADMIT Internal Medicine; ATTEND Internal Medicine
DX: T43.621A Poisoning by amphetamines, accidental (unintentional), initial encounter (principal); N17.0 Acute kidney failure with tubular necrosis; M62.82 Rhabdomyolysis; E87.1 Hypo-osmolality and hyponatremia; T67.5XXA Heat exhaustion, unspecified, initial encounter; E86.0 Dehydration; D72.829 Elevated white blood cell count, unspecified; M62.838 Other muscle spasm; E83.52 Hypercalcemia; F15.90 Other stimulant use, unspecified, uncomplicated; Z82.49 Family history of ischemic heart disease and other diseases of the circulatory system; Y92.89 Other specified places as the place of occurrence of the external cause; Y93.89 Activity, other specified; Y99.8 Other external cause status
CPT/HCPCS: 36415; 74018; 80053; 80307; 81001; 82550; 83735; 84484; 85007; 85025; 87086; 93005; 96361; 96374; 96375; C9113; J2270; J2405; J7030; 99285-25; G0378